=== PATIENT | male | born 1965 | race Caucasian/White ===

== ENCOUNTER → 2018-01-29 | Outpatient (CLI) | payer MEDICAID ==
[2018-01-29 10:06] LABS: ALT 33 U/L (21-72); AST 33 U/L (17-59); Alkaline Phosphatase 38 U/L (38-126); Anion Gap 6 mmol/L; Blood Urea Nitrogen 17 mg/dL (9-20); Calcium 9.3 mg/dL (8.4-10.2); Carbon Dioxide 28 mmol/L (22-30); Chloride 108 mmol/L (98-107); Cholesterol 221 mg/dL (<200); Glucose 93 mg/dL (74-99); HDL Cholesterol 59 mg/dL (40-60); LDL Cholesterol,Calculated 143 mg/dL (0-99); Potassium 4.6 mmol/L (3.5-5.1); Sodium 142 mmol/L (137-145); Total Bilirubin 0.5 mg/dL (0.2-1.3); Triglycerides 93 mg/dL (<150)
[2018-01-29 10:33] LABS: Prostate Specific Antigen 0.58 ng/mL (0.00-4.00)
== END | disposition home or self-care (01) ==
LOC: LABWHC1 06:49
PROVIDERS: ATTEND Family Medicine
DX: Z00.00 Encounter for general adult medical examination without abnormal findings (principal)
CPT/HCPCS: 36415; 80053; 80061; 84153

== ENCOUNTER → 2020-08-23 | Outpatient (CLI) | payer MEDICAID ==
[2020-08-23 11:03] LABS: Basophils # (A) 0.08 X 10*3/uL (0.00-0.10); Basophils % (A) 1.5 %; Eosinophils # (A) 0.38 X 10*3/uL (0.04-0.35); HCT 42.9 % (39.6-50.0); Lymphocytes # (A) 2.17 X 10*3/uL (0.90-5.00); MCH 30.8 pg (27.0-32.0); MCHC 32.6 g/dL (32.0-37.0); MCV 94.5 fL (80.0-97.0); Mean Platelet Volume 10.3 fL (9.5-12.2); Monocytes # (A) 0.65 X 10*3/uL (0.20-1.00); Neutrophils # (A) 2.13 X 10*3/uL (1.80-7.70); Neutrophils % (A) 39.3 %; Platelet Count 305 X 10*3/uL (140-440); RBC 4.54 X 10*6/uL (4.40-5.60); RDW 12.7 % (11.5-14.5); WBC 5.42 X 10*3/uL (4.50-10.00)
[2020-08-23 12:15] LABS: T4, Free (Free Thyroxine) 1.2 ng/dL (0.80-1.80)
[2020-08-23 13:04] LABS: African American GFR (CKD) 97.1 (60.0-200.0); Albumin 4.3 g/dL (3.80-4.90); Albumin/Globulin Ratio 2.05 (1.60-3.17); Anion Gap 5.9 mmol/L (4.00-12.00); Calcium 9.6 mg/dL (8.7-10.3); Carbon Dioxide 27.1 mmol/L (21.6-31.8); Chol/HDL Ratio 3.58; Globulin 2.1 g/dL (1.6-3.3); Non-African American GFR(CKD) 83.8 (60.0-200.0); Potassium 4.3 mmol/L (3.5-5.5); Prostate Specific Antigen 0.5 ng/mL (0.0-3.5); Total Protein 6.4 g/dL (6.2-8.2)
== END | disposition home or self-care (01) ==
LOC: LABWHC1 07:03
PROVIDERS: ATTEND Family Medicine
DX: Z00.00 Encounter for general adult medical examination without abnormal findings (principal); K21.9 Gastro-esophageal reflux disease without esophagitis
CPT/HCPCS: 36415; 80053; 80061; 84153; 84439; 84443; 85025

== ENCOUNTER → 2021-10-14 | Outpatient (CLI) | payer MEDICAID ==
[2021-10-14 10:44] LABS: Basophils # (A) 0.07 X 10*3/uL (0.00-0.10); Basophils % (A) 1.4 %; Eosinophils # (A) 0.49 X 10*3/uL (0.04-0.35); Eosinophils % (A) 9.8 %; HCT 42.4 % (39.6-50.0); HGB 13.6 g/dL (13.0-17.0); Immature Grans, Automated 0 %; Lymphocytes # (A) 1.98 X 10*3/uL (0.90-5.00); Lymphocytes % (A) 39.5 %; MCHC 32.1 g/dL (32.0-37.0); MCV 93.4 fL (80.0-97.0); Mean Platelet Volume 10.5 fL (9.5-12.2); Monocytes # (A) 0.54 X 10*3/uL (0.20-1.00); Monocytes % (A) 10.8 %; NRBC Per 100 WBC 0 /100 WBCS (0.0-0.0); Neutrophils # (A) 1.93 X 10*3/uL (1.80-7.70); Neutrophils % (A) 38.5 %; Platelet Count 314 X 10*3/uL (140-440); RBC 4.54 X 10*6/uL (4.40-5.60); RDW 13.1 % (11.5-14.5); WBC 5.01 X 10*3/uL (4.50-10.00)
[2021-10-14 11:08] LABS: ALT 23 U/L (10-49); AST 26 U/L (14-35); African American GFR (CKD) 91.9 (60.0-200.0); Albumin 4.4 g/dL (3.8-4.9); Albumin/Globulin Ratio 1.88 (1.60-3.17); Alkaline Phosphatase 42 U/L (41-126); BUN/Creat Ratio 13.17 Ratio (12.00-20.00); Blood Urea Nitrogen 13.7 mg/dL (9.0-27.0); Calcium 9.6 mg/dL (8.7-10.3); Carbon Dioxide 26.6 mmol/L (20.0-27.5); Chloride 106 mmol/L (96-109); Chol/HDL Ratio 3.84 Ratio; Globulin 2.3 g/dL (1.6-3.3); Glucose 106 mg/dL (70-110); LDL Cholesterol,Calculated 179.7 mg/dL (0.0-131.0); Non-African American GFR(CKD) 79.3 (60.0-200.0); Potassium 4.6 mmol/L (3.5-5.5); Sodium 140 mmol/L (135-145); Total Protein 6.7 g/dL (6.2-8.2); VLDL Calculation 18.52 mg/dL (5.00-40.00)
== END | disposition home or self-care (01) ==
LOC: LABWHC1 07:04
PROVIDERS: ATTEND Family Medicine
DX: Z00.00 Encounter for general adult medical examination without abnormal findings (principal); E78.5 Hyperlipidemia, unspecified
CPT/HCPCS: 36415; 80053; 80061; 84153; 84436; 84443; 85025

== ENCOUNTER → 2022-10-23 | Outpatient (CLI) | payer MEDICAID ==
[2022-10-23 11:17] LABS: ALT 24 U/L (10-49); AST 24 U/L (14-35); Albumin 4.4 d/dL (3.8-4.9); Albumin/Globulin Ratio 1.83 Ratio (1.60-3.17); Alkaline Phosphatase 47 U/L (41-126); Blood Urea Nitrogen 13.3 mg/dL (9.0-27.0); Calcium 9.6 mg/dL (8.7-10.3); Carbon Dioxide 26.1 mmol/L (21.6-31.8); Chloride 103 mmol/L (96-109); Chol/HDL Ratio 3.88 Ratio; Globulin 2.4 d/dL (1.6-3.3); Glucose 93 mg/dL (70-110); LDL Cholesterol,Calculated 184.4 mg/dL (0.0-131.0); Potassium 4.6 mmol/L (3.5-5.5); Sodium 139 mmol/L (135-145); T4, Free (Free Thyroxine) 1.23 ng/dL (0.80-1.80); Total Bilirubin 0.8 mg/dL (0.3-1.2); Total Protein 6.8 d/dL (6.2-8.2); VLDL Calculation 15.24 mg/dL (5.00-40.00)
[2022-10-23 17:19] LABS: Basophils # (A) 0.09 X 10*3/uL (0.00-0.10); Basophils % (A) 1.5 %; Eosinophils # (A) 0.66 X 10*3/uL (0.04-0.35); HCT 42.9 % (39.6-50.0); HGB 13.9 d/dL (12.0-15.0); Lymphocytes # (A) 2.18 X 10*3/uL (0.90-5.00); Lymphocytes % (A) 36.5 %; MCH 30.8 pg (27.0-32.0); MCHC 32.4 d/dL (32.0-37.0); MCV 95.1 FL (80.0-97.0); Mean Platelet Volume 10.2 FL (9.5-12.2); Monocytes # (A) 0.59 X 10*3/uL (0.20-1.00); Monocytes % (A) 9.9 %; NRBC Per 100 WBC 0 X 10*3/uL (0.00-0.01); Neutrophils # (A) 2.44 X 10*3/uL (1.80-7.70); Neutrophils % (A) 40.8 %; Platelet Count 305 X 10*3/uL (140-440); RBC 4.51 X 10*6/uL (4.40-5.60); RDW 12.8 % (11.5-14.5); WBC 5.98 X 10*3/uL (4.50-10.00)
== END | disposition home or self-care (01) ==
LOC: LABWHC1 06:56
PROVIDERS: ATTEND Family Medicine
DX: Z00.00 Encounter for general adult medical examination without abnormal findings (principal)
CPT/HCPCS: 36415; 80053; 80061; 84153; 84439; 84443; 85025

== ENCOUNTER → 2024-01-07 | Outpatient (CLI) | payer MEDICAID ==
[2024-01-07 10:51] LABS: Basophils # (A) 0.07 X 10*3/uL (0.00-0.10); Basophils % (A) 1.4 %; Eosinophils # (A) 0.42 X 10*3/uL (0.04-0.35); Eosinophils % (A) 8.4 %; HCT 44.5 % (39.6-50.0); HGB 14.7 g/dL (13.0-17.0); Lymphocytes # (A) 1.55 X 10*3/uL (0.90-5.00); MCH 31.1 pg (27.0-32.0); MCV 94.1 FL (80.0-97.0); Mean Platelet Volume 10.6 FL (9.5-12.2); Monocytes # (A) 0.51 X 10*3/uL (0.20-1.00); Monocytes % (A) 10.2 %; NRBC Per 100 WBC 0 X 10*3/uL (0.00-0.01); Neutrophils # (A) 2.43 X 10*3/uL (1.80-7.70); Neutrophils % (A) 48.6 %; Platelet Count 316 X 10*3/uL (140-440); RBC 4.73 X 10*6/uL (4.40-5.60); RDW 12.8 % (11.5-14.5)
[2024-01-07 11:13] LABS: ALT 24 U/L (10-49); AST 24 U/L (14-35); Albumin 4.6 g/dL (3.8-4.9); Albumin/Globulin Ratio 1.92 Ratio (1.60-3.17); Alkaline Phosphatase 49 U/L (41-126); Blood Urea Nitrogen 13.8 mg/dL (9.0-27.0); Calcium 9.6 mg/dL (8.7-10.3); Carbon Dioxide 26.7 mmol/L (21.6-31.8); Chloride 104 mmol/L (96-109); Chol/HDL Ratio 4.11 Ratio; Globulin 2.4 g/dL (1.6-3.3); Glucose 99 mg/dL (70-110); LDL Cholesterol,Calculated 194.6 mg/dL (0.0-131.0); Potassium 4.4 mmol/L (3.5-5.5); Prostate Specific Antigen 1.12 ng/mL (0.000-3.500); Sodium 139 mmol/L (135-145); T4, Free (Free Thyroxine) 1.17 ng/dL (0.80-1.80); Total Bilirubin 0.8 mg/dL (0.3-1.2); VLDL Calculation 17.34 mg/dL (5.00-40.00)
== END | disposition home or self-care (01) ==
LOC: LABWHC1 07:12
PROVIDERS: ATTEND Family Medicine
DX: Z00.00 Encounter for general adult medical examination without abnormal findings (principal)
CPT/HCPCS: 36415; 80053; 80061; 84153; 84439; 84443; 85025

== ENCOUNTER 2024-05-31 08:08 | Day surgery (SDC) | payer MEDICAID ==
[2024-05-26 09:05] VITALS: BMI 25.8
[2024-05-31] MEDS: LACTATED RINGERS 1,000 ML IV ONE (08:32)
[2024-05-31 08:35] VITALS: RESP 16; TEMP 97
[2024-05-31] MEDS: LACTATED RINGERS 1,000 ML IV SCH (08:36)
[2024-05-31] MEDS ORDERED: LIDOCAINE 2% (PF) 20 MG/ML 5 ML VIAL ONE (09:05)
[2024-05-31] MEDS ORDERED: PROPOFOL 10 MG/ML 20 ML VIAL IV ONE (09:05)
--- NOTE | 2024-05-31 09:12 | P.GSHP ---
History of Present Illness H&P Date: 05/31/24 Chief Complaint: GERD, screening 59-year-old male here for upper and lower endoscopy. Last colonoscopy 10 years ago. History of previous stomach ulcer. Takes omeprazole every other day. Symptoms well-controlled. No dysphagia. No family history of colon cancer. Past Medical History Past Medical History: GERD/Reflux Additional Past Medical History / Comment(s): HX STOMACH ULCER. MOLES REMOVED ABDOMEN & BACK 06/23/14, melanoma left chest 2021 History of Any Multi-Drug Resistant Organisms: None Reported Past Surgical History: Orthopedic Surgery, Tonsillectomy Additional Past Surgical History / Comment(s): RIGHT ARTHROSCOPIC 2009 right knee,, colonoscopy , egd Past Anesthesia/Blood Transfusion Reactions: No Reported Reaction Additional Past Anesthesia/Blood Transfusion Reaction / Comment(s): no blood transfusion Smoking Status: Never smoker Medications and Allergies Home Medications Medication Instructions Recorded Confirmed Type Pantoprazole Sodium [Protonix] 40 mg PO DAILY 07/20/14 05/26/24 History Allergies Allergy/AdvReac Type Severity Reaction Status Date / Time No Known Allergies Allergy Verified 05/26/24 08:59 Surgical - Exam Vital Signs Temp Pulse Resp BP Pulse Ox 97 F L 80 16 162/89 97 05/31/24 08:33 05/31/24 08:33 05/31/24 08:33 05/31/24 08:33 05/31/24 08:33 PREOPERATIVE DIAGNOSIS: [] POSTOPERATIVE DIAGNOSIS: [] PROCEDURE: 1. EGD with biopsy 2. Colonoscopy [] ANESTHESIA: MAC SURGEON: Bryan Singer M.D. SPECIMENS: [] ENDOSCOPIC PROCEDURE: The patient was on the endoscopy table in the left decubitus position. The Olympus gastroscope was inserted into the oropharynx and passed under direct visualization to the region of the third portion of the duodenum. From that point the scope was slowly withdrawn inspecting all surfaces carefully. There were no neoplastic inflammatory or polypoid lesions throughout the duodenum. The pylorus was widely patent. The stomach was carefully inspected. There was []. A biopsy of the antrum took place to rule out H. pylori. Retroflexion revealed a normal hiatus. The esophagus was then carefully examined. There were no neoplastic inflammatory or polypoid lesions throughout the visualized esophagus. The patient was kept on the endoscopy table in the left decubitus position. The Olympus colonoscope was inserted into the anus and passed under direct visualization to the base of the cecum. The appendiceal orifice was visualized. From that point the scope was slowly withdrawn inspecting all surfaces carefully. There were no neoplastic inflammatory or polypoid lesions throughout the cecum, ascending, transverse, descending, sigmoid and rectum. There was [] diverticulosis noted[]. Digital rectal examination was normal. The patient was taken to the recovery room in stable condition per anesthesia guidelines. RECOMMENDATIONS: [] Assessment and Plan (1) GERD (gastroesophageal reflux disease) Narrative/Plan: Will proceed with upper and lower endoscopy Current Visit: Yes Status: Acute Code(s): K21.9 - GASTRO-ESOPHAGEAL REFLUX DISEASE WITHOUT ESOPHAGITIS SNOMED Code(s): 552279102
--- NOTE | 2024-05-31 09:37 | P.PCN ---
Date of Procedure: 05/31/24 Procedure(s) Performed: PREOPERATIVE DIAGNOSIS: Colon cancer, GERD POSTOPERATIVE DIAGNOSIS: Mild gastritis, cecal polyp, rectal polyp PROCEDURE: 1. EGD with biopsy 2. Colonoscopy with polypectomy ANESTHESIA: MAC SURGEON: Bryan Singer M.D. SPECIMENS: Antrum, polyps ENDOSCOPIC PROCEDURE: The patient was on the endoscopy table in the left decubitus position. The Olympus gastroscope was inserted into the oropharynx and passed under direct visualization to the region of the third portion of the duodenum. From that point the scope was slowly withdrawn inspecting all surfaces carefully. There were no neoplastic inflammatory or polypoid lesions throughout the duodenum. The pylorus was widely patent. The stomach was carefully inspected. There was mild gastritis present. A biopsy of the antrum took place to rule out H. pylori. Retroflexion revealed a normal hiatus. The esophagus was then carefully examined. There were no neoplastic inflammatory or polypoid lesions throughout the visualized esophagus. The patient was kept on the endoscopy table in the left decubitus position. The Olympus colonoscope was inserted into the anus and passed under direct visualization to the base of the cecum. The appendiceal orifice was visualized. From that point the scope was slowly withdrawn inspecting all surfaces carefully. There was a small polyp in the cecum. This was removed using the snare with cautery technique. The remainder of the cecum ascending transverse descending and sigmoid colon appeared normal. In the rectum another small polyp was seen and removed in a similar fashion. There was no visible diverticulosis. Digital rectal examination was normal. The patient was taken to the recovery room in stable condition per anesthesia guidelines. RECOMMENDATIONS: Await biopsy results. Continue as needed antiacid therapy. Will contact patient with timing of next colonoscopy.
[2024-05-31 09:58] VITALS: BP 173/86; PULSE 61
== END 2024-05-31 10:17 | disposition home or self-care (01) ==
LOC: ORWHC2ENDO 08:08
PROVIDERS: ATTEND Surgery
DX: Z12.11 Encounter for screening for malignant neoplasm of colon (principal); D12.0 Benign neoplasm of cecum; K62.1 Rectal polyp; K29.50 Unspecified chronic gastritis without bleeding; K31.89 Other diseases of stomach and duodenum; K21.9 Gastro-esophageal reflux disease without esophagitis; Z79.899 Other long term (current) drug therapy; Z87.11 Personal history of peptic ulcer disease
CPT/HCPCS: 45385; 43239; J2704; J2003; 88305